=== PATIENT | male | born 1975 | race African-American/Black ===

== ENCOUNTER 2022-09-01 19:13 | Emergency (ER) | payer OTHER ==
[~2022-09-01] VITALS: Ht 182.9 cm; Wt 109.0 kg
[~2022-09-01 19:13] MED LIST: CYCL10TA21 MT; LIP40 MT; LORA10TA7 MT; TAMS-11 PO
[2022-09-01 20:52] LABS: BASOPHILS % 0.6 % (0.0-2.0); CHLORIDE 107 mEq/L (98-107); EOSINOPHILS % 0.7 % (0.0-5.0); HEMATOCRIT. 40.8 % (42.0-52.0); HEMOGLOBIN. 13.6 g/dL (14.0-18.0); LYMPHOCYTES % 21.6 % (20.0-50.0); MEAN CORPUSCULAR HEMOGLOBIN 27.5 pg (28.0-32.0); MEAN CORPUSCULAR VOLUME 82.4 fL (80.0-94.0); MEAN PLATELET VOLUME 7.9 fl (7.4-10.4); MONOCYTES % 5.2 % (2.0-8.0); NEUTROPHILS % 71.9 % (40.0-76.0); PLATELET 425 x1000/uL (130-400); RED BLOOD CELL COUNT 4.94 mill/uL (4.7-6.1); RED CELL DISTRIBUTION WIDTH 15.5 % (11.6-14.6)
[2022-09-01] MEDS ORDERED: KETOROLAC 60MG/2ML VIAL IM STA (22:30)
[2022-09-01] MEDS ORDERED: HYDROCODONE/ACETAMINOPHEN 5/325MG TABLET PO STA (22:30)
[2022-09-01 22:45] VITALS: BP 146/88
[2022-09-01 23:38] LABS: CLARITY URINE CLEAR (CLEAR); COLOR URINE DARK YELLOW (YELLOW); KETONES URINE 1+ (NEGATIVE); LEUKOCYTE ESTERASE URINE TRACE (NEGATIVE); NITRITE URINE NEGATIVE (NEGATIVE); OCCULT BLOOD URINE NEGATIVE (NEGATIVE); PROTEIN URINE 2+ (NEGATIVE); SPECIFIC GRAVITY URINE 1.035 (1.005-1.030)
[2022-09-02] MEDS ORDERED: HYDR-4001 PO (01:03)
[2022-09-02] MEDS ORDERED: NAPR500T7 PO (01:03)
[2022-09-02] MEDS ORDERED: IOHEXOL-300 100 ML BOTTLE ONE (04:19)
== END 2022-09-02 01:10 | disposition home or self-care (01) ==
LOC: ER 19:13
DX: S30.0XXA Contusion of lower back and pelvis, initial encounter (principal); J45.909 Unspecified asthma, uncomplicated; M54.50 Low back pain, unspecified; V49.59XA Passenger injured in collision with other motor vehicles in traffic accident, initial encounter; Y93.89 Activity, other specified; Y92.89 Other specified places as the place of occurrence of the external cause; Y99.8 Other external cause status
CPT/HCPCS: 36415; 74177; 80053; 81003; 85025; 96372; 99285; J1885; Q9967

== ENCOUNTER 2023-10-17 14:35 | Emergency (ER) | payer OTHER ==
[~2023-10-17] VITALS: Ht 182.9 cm; Wt 110.2 kg
[~2023-10-17 14:35] MED LIST changes: +HYDR-4001 PO; +NAPR500T7 PO
[2023-10-17 14:53] VITALS: BP 176/82; PULSE 87; RESP 16; TEMP 98.5; O2SAT 98
[2023-10-17] MEDS ORDERED: TOPUD MT (15:04)
[2023-10-17] MEDS ORDERED: IBUP-2028 MT (15:04)
== END 2023-10-17 15:48 | disposition home or self-care (01) ==
LOC: ER 14:45
DX: J06.9 Acute upper respiratory infection, unspecified (principal); U07.1 COVID-19; J45.909 Unspecified asthma, uncomplicated; Z79.899 Other long term (current) drug therapy
CPT/HCPCS: 87426; 99283